=== PATIENT | male | born 1965 | race American Indian/Alaskan Native ===

== ENCOUNTER 2016-05-11 10:49 | Emergency (ER) | payer MEDICARE ==
[2016-05-11 12:28] LABS: Hematocrit 37.6 % (35.5-45.6); Hemoglobin 11.8 gm/dl (11.8-15.2); Mean Corpuscular HGB Conc 31 % (32-34); Mean Corpuscular Hemoglobin 29 pg (28-32); Mean Corpuscular Volume 92 fl (84-94); Platelet Count 169 K/mm3 (140-440); Red Cell Distribution Width 14.5 % (13.2-15.2); White Blood Count 5.1 K/mm3 (4.5-11.0)
[2016-05-11 12:39] LABS: BUN/Creatinine Ratio 1.78; Potassium 3.7 mmol/L (3.6-5.0)
[2016-05-11] MEDS ORDERED: CLEOCIN PO ONE (13:00)
--- NOTE | 2016-05-11 13:41 | XRay Report ---
RIGHT TOES: History: Pain, evaluate for osteomyelitis. Osteopenia is present. Mild to moderate osteoarthritic changes are identified throughout the right foot. There is no evidence for fracture, dislocation or advanced bony destruction. Soft tissue swelling of the great toe and medial ulceration is suspected. IMPRESSION: Osteopenia. Degenerative changes. No convincing findings of osteomyelitis. If further evaluation is needed, MRI right foot with contrast or triple phase bone scan may prove useful.
--- NOTE | 2016-05-11 14:46 | Emergency Department Report ---
- General Chief Complaint: Wound/Laceration Stated Complaint: RT FOOT PAIN Source: patient Mode of arrival: Ambulatory Limitations: No Limitations - History of Present Illness Initial Comments: 51-year-old male past medical history COPD hypertension diabetes ESRD on hemodialysis Tuesday presents with complaint of one week of right great toe pain and mild swelling. Patient denies any fever or chills no nausea or vomiting denies any direct trauma. He states that he had pedicure last week. States that he feels his right great toe is swollen. Patient is able to ambulate without any significant difficulty. Also complaining of chronic burning sensation pain in the right mid foot with his peripheral neuropathy. Patient had hemodialysis morning came from home after hemodialysis. Onset/Timin -: week(s) Extremity Location: Right: Foot (right great toe) Associated Symptoms: pain - Related Data Home Medications Medication Instructions Recorded Confirmed Last Taken Carvedilol [Coreg] 6.25 mg PO BID 04/08/15 07/28/15 1 Day Ago 100mg Docusate Sodium [Colace CAP] 100 mg PO DAILY 04/08/15 07/28/15 1 Day Ago 100 MG Gabapentin [Neurontin] 100 mg PO HS 04/08/15 07/28/15 1 Day Ago 100 MG Amiodarone HCl [Amiodarone 100 MG 200 mg PO BID 06/27/15 06/27/15 1 Day Ago TAB] Benzonatate 100 mg PO Q6HR PRN 06/27/15 07/28/15 1 Day Ago 100 MG Lisinopril 2.5 mg PO DAILY 06/27/15 07/28/15 1 Day Ago 2.5 MG Sucroferric Oxyhydroxide [Velphoro] 500 mg PO AC 06/27/15 07/28/15 1 Day Ago 500 MG guaiFENesin ER [Mucinex ER] 600 mg PO BID 06/27/15 07/28/15 1 Day Ago 600 MG Previous Rx's Medication Instructions Recorded Last Taken Type Famotidine [Pepcid] 20 mg PO DAILY #30 tablet 02/20/14 1 Day Ago Rx 20 MG Apixaban [Eliquis] 2.5 mg PO BID #60 tablet 04/11/15 1 Day Ago Rx 2.5 Levofloxacin [Levaquin TAB] 500 mg PO QDAY #3 tablet 07/30/15 Unknown Rx Acetaminophen [Acetaminophen TAB] 500 mg PO Q8H PRN #25 tablet 05/11/16 Unknown Rx Clindamycin [Clindamycin CAP] 300 mg PO QID #28 cap 05/11/16 Unknown Rx HYDROcodone/APAP 5-325 [[place] 1 each PO Q6HR PRN #8 tablet 05/11/16 Unknown Rx 5/325] Allergies Allergy/AdvReac Type Severity Reaction Status Date / Time grapefruit AdvReac Rash Verified 06/27/15 09:26 chlorox/chlorox bleach Allergy Rash Uncoded 07/27/15 18:59 Tomato/ketchup AdvReac Unknown Uncoded 02/04/14 11:50 ED Review of Systems ROS: Stated complaint: RT FOOT PAIN Other details as noted in HPI Constitutional: denies: chills, fever Eyes: denies: eye pain, eye discharge, vision change ENT: denies: ear pain, throat pain Respiratory: denies: cough, shortness of breath, wheezing Cardiovascular: denies: chest pain, palpitations Endocrine: no symptoms reported Gastrointestinal: denies: abdominal pain, nausea, diarrhea Genitourinary: denies: urgency, dysuria Musculoskeletal: as per HPI. denies: back pain, joint swelling, arthralgia Skin: denies: rash, lesions Neurological: denies: headache, weakness, paresthesias Psychiatric: denies: anxiety, depression Hematological/Lymphatic: denies: easy bleeding, easy bruising ED Past Medical Hx - Past Medical History Hx Hypertension: Yes Hx Heart Attack/AMI: Yes Hx Congestive Heart Failure: Yes Hx Diabetes: Yes Hx Deep Vein Thrombosis: Yes Hx Pulmonary Embolism: Yes (02/08) Hx Renal Disease: Yes ( dialysis) Hx Asthma: Yes Hx COPD: No Hx HIV: No - Surgical History Hx Coronary Stent: Yes Additional Surgical History: hernia, av graft L. arm - Social History Smoking Status: Unknown if ever smoked Substance Use Type: None - Medications Home Medications: Home Medications Medication Instructions Recorded Confirmed Last Taken Type Famotidine [Pepcid] 20 mg PO DAILY #30 tablet 02/20/14 07/28/15 1 Day Ago Rx 20 MG Carvedilol [Coreg] 6.25 mg PO BID 04/08/15 07/28/15 1 Day Ago History 100mg Docusate Sodium [Colace CAP] 100 mg PO DAILY 04/08/15 07/28/15 1 Day Ago History 100 MG Gabapentin [Neurontin] 100 mg PO HS 04/08/15 07/28/15 1 Day Ago History 100 MG Apixaban [Eliquis] 2.5 mg PO BID #60 tablet 04/11/15 07/28/15 1 Day Ago Rx 2.5 Amiodarone HCl [Amiodarone 100 MG 200 mg PO BID 06/27/15 06/27/15 1 Day Ago History TAB] Benzonatate 100 mg PO Q6HR PRN 06/27/15 07/28/15 1 Day Ago History 100 MG Lisinopril 2.5 mg PO DAILY 06/27/15 07/28/15 1 Day Ago History 2.5 MG Sucroferric Oxyhydroxide [Velphoro] 500 mg PO AC 06/27/15 07/28/15 1 Day Ago History 500 MG guaiFENesin ER [Mucinex ER] 600 mg PO BID 06/27/15 07/28/15 1 Day Ago History 600 MG Levofloxacin [Levaquin TAB] 500 mg PO QDAY #3 tablet 07/30/15 Unknown Rx Acetaminophen [Acetaminophen TAB] 500 mg PO Q8H PRN #25 tablet 05/11/16 Unknown Rx Clindamycin [Clindamycin CAP] 300 mg PO QID #28 cap 05/11/16 Unknown Rx HYDROcodone/APAP 5-325 [[place] 1 each PO Q6HR PRN #8 tablet 05/11/16 Unknown Rx 5/325] ED Physical Exam - General Limitations: No Limitations General appearance: alert, in no apparent distress - Head Head exam: Present: atraumatic, normocephalic - Eye Eye exam: Present: normal appearance, PERRL, EOMI - ENT ENT exam: Present: mucous membranes moist - Neck Neck exam: Present: normal inspection - Respiratory Respiratory exam: Present: normal lung sounds bilaterally. Absent: respiratory distress - Cardiovascular Cardiovascular Exam: Present: regular rate, normal rhythm. Absent: systolic murmur, diastolic murmur, rubs, gallop - GI/Abdominal GI/Abdominal exam: Present: soft, normal bowel sounds - Rectal Rectal exam: Present: deferred - Extremities Exam Extremities exam: Present: normal inspection, full ROM - Expanded Lower Extremity Exam Right Foot/Toe exam: Present: full ROM, tenderness, swelling (patient has mild swelling and tenderness right distal toe is slightly erythematous. No palpable fluctuance no visible break in skin or ulceration, no appreciable paronychia minimal tenderness to palpation on the sides of toe), erythema Gait: Positive: observed and normal 1 - Mild redness and swelling - Back Exam Back exam: Present: normal inspection - Neurological Exam Neurological exam: Present: alert, oriented X3 - Psychiatric Psychiatric exam: Present: normal affect, normal mood - Skin Skin exam: Present: warm, dry, intact, normal color. Absent: rash ED Course Vital Signs 05/11/16 11:21 Temperature 97.6 F Pulse Rate 95 H Respiratory 18 Rate Blood Pressure 124/67 O2 Sat by Pulse 96 Oximetry ED Medical Decision Making - Lab Data Result diagrams: 05/11/16 12:15 05/11/16 12:15 - Medical Decision Making A/P: Right great toe cellulitis 1-case discussed with Dr. Franklin 2-ESR CRP within normal limits lactic acid within normal limits WBC within normal limits, x-ray shows no significant bony erosion will treat patient empirically for diabetic cellulitis with clindamycin 3-I called the patient's family member as patient had requested to discuss plan. I advised patient's sister to keep a close eye on his toe and if there is no improvement or worsening of symptoms within the next 72 hours to return to the ED and/or if he develops severe difficulty walking worsened redness that spreads into the foot any pus drainage or any fevers or chills to return to the ED immediately. Patient states that he has follow-up with his primary care doctor in approximately 1 week. Patient's family member understood these instructions. Patient's sister's number is [phone] Critical care attestation.: If time is entered above; I have spent that time in minutes in the direct care of this critically ill patient, excluding procedure time. ED Disposition Clinical Impression: Cellulitis of toe of right foot Disposition: DISCHARGED TO HOME OR SELFCARE Is pt being admited?: No Does the pt Need Aspirin: No Condition: Stable Instructions: Cellulitis (ED), Diabetic Foot Care (ED), Diabetic Foot Ulcers ( ED) Prescriptions: Acetaminophen [Acetaminophen TAB] 500 mg PO Q8H PRN #25 tablet PRN Reason: Pain Clindamycin [Clindamycin CAP] 300 mg PO QID #28 cap HYDROcodone/APAP 5-325 [[place] 5/325] 1 each PO Q6HR PRN #8 tablet PRN Reason: Pain Referrals: PRIMARY CAREMD [Primary Care Provider] - 3-5 Days ALO DAMON MD [Staff Physician] - 3-5 Days [facility] [Outside] - 3-5 Days Time of Disposition: 14:47
[2016-05-11] MEDS ORDERED: TYLENOL PO ONE (14:57)
[2016-05-11 15:34] VITALS: BP 118/75
== END 2016-05-11 15:40 | disposition home or self-care (01) ==
LOC: ED 10:49
DX: L03.031 Cellulitis of right toe (principal); I12.0 Hypertensive chronic kidney disease with stage 5 chronic kidney disease or end stage renal disease; N18.6 End stage renal disease; E11.9 Type 2 diabetes mellitus without complications; I25.2 Old myocardial infarction; I50.9 Heart failure, unspecified; J45.909 Unspecified asthma, uncomplicated; Z99.2 Dependence on renal dialysis; Z86.718 Personal history of other venous thrombosis and embolism; Z86.711 Personal history of pulmonary embolism; Z91.018 Allergy to other foods
CPT/HCPCS: 36415; 80048; 82140; 85027; 85652; 86140; 99284

== ENCOUNTER 2016-06-21 09:07 | Emergency (ER) | payer MEDICARE ==
[2016-06-21] MEDS ORDERED: DECADRON IV ONE (12:45)
--- NOTE | 2016-06-21 12:45 | Emergency Department Report ---
ED Extremity Problem HPI - General Chief complaint: Extremity Injury, Lower Stated complaint: BIG TOE PAIN Time Seen by Provider: 06/21/16 12:18 Source: patient Mode of arrival: Ambulatory Limitations: No Limitations - History of Present Illness Initial comments: Patient complaining of toe pain that is consistent with prior episodes of gout. Patient denies any fever or chills, also denies trauma to her extremity. While examining patient patient also added on complaint of upper respiratory infection, stating he has a cough with productive yellow sputum. MD Complaint: extremity pain, extremity swelling - Related Data Home Medications Medication Instructions Recorded Confirmed Last Taken Carvedilol [Coreg] 6.25 mg PO BID 04/08/15 06/01/16 1 Day Ago 100mg Docusate Sodium [Colace CAP] 100 mg PO BID PRN 04/08/15 06/01/16 1 Day Ago 100 MG Amiodarone HCl [Amiodarone 100 MG 200 mg PO DAILY 06/27/15 06/01/16 1 Day Ago TAB] Lisinopril 2.5 mg PO DAILY 06/27/15 06/01/16 1 Day Ago 2.5 MG Sucroferric Oxyhydroxide [Velphoro] 500 mg PO TID 06/27/15 06/01/16 1 Day Ago 500 MG Famotidine [Pepcid] 20 mg PO BID 06/01/16 06/01/16 Unknown Vit B Cplx #11/FA/C/Biot/Zn Ox 1 tab PO DAILY 06/01/16 06/01/16 Unknown [Dialyvite with Zinc Tablet] Previous Rx's Medication Instructions Recorded Last Taken Type Apixaban [Eliquis] 2.5 mg PO BID #60 tablet 04/11/15 1 Day Ago Rx 2.5 Levofloxacin [Levaquin] 250 mg PO QDAY #5 tablet 06/02/16 Unknown Rx traMADol [Ultram 50 MG tab] 50 mg PO Q4HR PRN #10 tablet 06/21/16 Unknown Rx Allergies Allergy/AdvReac Type Severity Reaction Status Date / Time grapefruit AdvReac Rash Verified 05/31/16 09:32 chlorox/chlorox bleach Allergy Rash Uncoded 05/31/16 09:32 Tomato/ketchup AdvReac Unknown Uncoded 05/31/16 09:32 ED Review of Systems ROS: Stated complaint: BIG TOE PAIN Other details as noted in HPI Constitutional: denies: chills, diaphoresis, fever, malaise Eyes: as per HPI ENT: denies: ear pain, throat pain Respiratory: cough, wheezing Cardiovascular: denies: chest pain, palpitations Gastrointestinal: denies: abdominal pain, nausea, vomiting, diarrhea Musculoskeletal: joint swelling, arthralgia. denies: back pain Skin: denies: rash Neurological: denies: headache, weakness, numbness, paresthesias ED Past Medical Hx - Past Medical History Previous Medical History?: Yes Hx Hypertension: Yes Hx Heart Attack/AMI: Yes Hx Congestive Heart Failure: Yes Hx Diabetes: Yes Hx Deep Vein Thrombosis: Yes Hx Pulmonary Embolism: Yes (02/08) Hx Renal Disease: Yes ([facility] dialysis) Hx Asthma: Yes Hx COPD: Yes (2-3 L home O2) Hx HIV: No Additional medical history: Hard of Hearing - Surgical History Past Surgical History?: Yes Hx Coronary Stent: Yes Additional Surgical History: hernia, av graft L. arm - Social History Smoking Status: Former Smoker Substance Use Type: Prescribed, Other - Medications Home Medications: Home Medications Medication Instructions Recorded Confirmed Last Taken Type Carvedilol [Coreg] 6.25 mg PO BID 04/08/15 06/01/16 1 Day Ago History 100mg Docusate Sodium [Colace CAP] 100 mg PO BID PRN 04/08/15 06/01/16 1 Day Ago History 100 MG Apixaban [Eliquis] 2.5 mg PO BID #60 tablet 04/11/15 06/01/16 1 Day Ago Rx 2.5 Amiodarone HCl [Amiodarone 100 MG 200 mg PO DAILY 06/27/15 06/01/16 1 Day Ago History TAB] Lisinopril 2.5 mg PO DAILY 06/27/15 06/01/16 1 Day Ago History 2.5 MG Sucroferric Oxyhydroxide [Velphoro] 500 mg PO TID 06/27/15 06/01/16 1 Day Ago History 500 MG Famotidine [Pepcid] 20 mg PO BID 06/01/16 06/01/16 Unknown History Vit B Cplx #11/FA/C/Biot/Zn Ox 1 tab PO DAILY 06/01/16 06/01/16 Unknown History [Dialyvite with Zinc Tablet] Levofloxacin [Levaquin] 250 mg PO QDAY #5 tablet 06/02/16 Unknown Rx traMADol [Ultram 50 MG tab] 50 mg PO Q4HR PRN #10 tablet 06/21/16 Unknown Rx ED Physical Exam - General Limitations: No Limitations General appearance: alert, in no apparent distress - Head Head exam: Present: atraumatic, normocephalic - Eye Eye exam: Present: normal appearance - ENT ENT exam: Present: mucous membranes moist - Neck Neck exam: Present: normal inspection - Respiratory Respiratory exam: Present: wheezes, rhonchi. Absent: normal lung sounds bilaterally, respiratory distress - Cardiovascular Cardiovascular Exam: Present: tachycardia - GI/Abdominal GI/Abdominal exam: Absent: soft, distended, tenderness, guarding - Extremities Exam Extremities exam: Present: tenderness, joint swelling - Expanded Lower Extremity Exam Left Lower Leg exam: Present: normal inspection, full ROM. Absent: swelling Ankle exam: Present: normal inspection, full ROM. Absent: tenderness, swelling , ecchymosis, deformity, erythema Foot/Toe exam: Present: tenderness, swelling Neuro vascular tendon exam: Present: no vascular compromise (left podagra). Absent: pulse deficit, abnormal cap refill - Back Exam Back exam: Present: normal inspection - Neurological Exam Neurological exam: Present: alert ED Course Vital Signs 06/21/16 09:34 Temperature 97.8 F Pulse Rate 105 H Respiratory 22 Rate Blood Pressure 131/72 O2 Sat by Pulse 100 Oximetry ED Medical Decision Making - Lab Data Result diagrams: 06/21/16 13:45 06/21/16 13:45 - Medical Decision Making I discussed the patient's history with patient's sister whom he lives with on the phone. Due to patient's mental disabilities he is a very poor historian and all information had to be gained from relative that he lives with. IV fluids were initially started on this patient to deliver IV meds and IV fluids patient did not inform staff that he was a dialysis patient fluid stopped immediately once this was found out a Kahn got an approximately 200 mL of normal saline over about a 1 hourperiod There were 22-gauge peripheral IV. I discussed findings with , we both feel patient is fine for discharge. Critical care attestation.: If time is entered above; I have spent that time in minutes in the direct care of this critically ill patient, excluding procedure time. ED Disposition Clinical Impression: Gout Disposition: DISCHARGED TO HOME OR SELFCARE Is pt being admited?: No Condition: Stable Prescriptions: traMADol [Ultram 50 MG tab] 50 mg PO Q4HR PRN #10 tablet PRN Reason: Pain Referrals: PRIMARY CARE,MD [Primary Care Provider] - 3-5 Days
--- NOTE | 2016-06-21 13:25 | XRay Report ---
PA and lateral chest: The heart is being. The aortic arch is slightly tortuous and calcified. There is mild vascular congestion. The possibility of mild pulmonary interstitial disease cannot be excluded. There are no pulmonary infiltrates or nodules. The findings appear essentially unchanged compared May 31, 2016. Impression: Mild chronic congestion. Questionable chronic lung disease. No acute findings noted.
[2016-06-21] MEDS: NACL 0.9% 1000 ML 1,000 ML IV ONE ×2 (14:10→14:16)
[2016-06-21 14:11] LABS: Basophils % (Auto) 2.1 % (0.0-1.8); Eosinophils % (Auto) 14.4 % (0.0-4.3); Hematocrit 34.3 % (35.5-45.6); Mean Corpuscular HGB Conc 32 % (32-34); Mean Corpuscular Hemoglobin 29 pg (28-32); Mean Corpuscular Volume 89 fl (84-94); Platelet Count 148 K/mm3 (140-440); Red Blood Count 3.85 M/mm3 (3.65-5.03); White Blood Count 6.3 K/mm3 (4.5-11.0)
[2016-06-21 14:32] LABS: Albumin 3.2 g/dL (3.9-5); Albumin/Globulin Ratio 0.9 %; BUN/Creatinine Ratio 3.13; Bilirubin,Total 0.3 mg/dL (0.1-1.2); Chloride 98.8 mmol/L (98-107); Potassium 4.4 mmol/L (3.6-5.0); Total Protein 6.7 g/dL (6.3-8.2)
[2016-06-21 15:28] VITALS: BP 122/70
== END 2016-06-21 15:26 | disposition home or self-care (01) ==
LOC: ED 09:07
DX: M10.9 Gout, unspecified (principal); I10 Essential (primary) hypertension; I25.2 Old myocardial infarction; I50.9 Heart failure, unspecified; E11.9 Type 2 diabetes mellitus without complications; J44.9 Chronic obstructive pulmonary disease, unspecified; J45.909 Unspecified asthma, uncomplicated; Z86.711 Personal history of pulmonary embolism; Z86.718 Personal history of other venous thrombosis and embolism; Z87.891 Personal history of nicotine dependence; Z91.018 Allergy to other foods
CPT/HCPCS: 36415; 71020; 80053; 85025; 96374; 99284; J1100; J7030

== ENCOUNTER 2016-07-16 08:23 | Emergency (ER) | payer MEDICARE ==
[2016-07-16 10:41] LABS: Basophils % (Auto) 0.4 % (0.0-1.8); Eosinophils % (Auto) 8.7 % (0.0-4.3); Hematocrit 38.1 % (35.5-45.6); Hemoglobin 12.6 gm/dl (11.8-15.2); Mean Corpuscular HGB Conc 33 % (32-34); Mean Corpuscular Hemoglobin 30 pg (28-32); Mean Corpuscular Volume 89 fl (84-94); Platelet Count 168 K/mm3 (140-440); Red Blood Count 4.27 M/mm3 (3.65-5.03); Red Cell Distribution Width 15.3 % (13.2-15.2); White Blood Count 6.2 K/mm3 (4.5-11.0)
--- NOTE | 2016-07-16 10:59 | XRay Report ---
Left foot 3 views: History: Left foot pain. Findings: Generalized demineralization. Hallux valgus with degenerative changes of the first tarsometatarsal and metatarsophalangeal and interphalangeal joint. Arthritic changes at the interphalangeal and second third fourth and fifth toes. Arthritic changes of the talonavicular and naviculocuneiform joints predominantly dorsally. No periosteal reaction. Calcification of plantar vessels. Large dorsal spur posterior calcaneum. Impression: Findings as detailed above.
[2016-07-16 11:01] LABS: Anion Gap 23 mmol/L; BUN/Creatinine Ratio 2.77; Blood Urea Nitrogen 25 mg/dL (9-20); Calcium 9.8 mg/dL (8.4-10.2); Carbon Dioxide 23 mmol/L (22-30); Chloride 95.8 mmol/L (98-107); Glucose 114 mg/dL (75-100); Sodium 136 mmol/L (137-145); Uric Acid 3.9 mg/dL (3.5-7.6)
--- NOTE | 2016-07-16 11:22 | Emergency Department Report ---
HPI - General Chief Complaint: Skin/Abscess/Foreign Body Time Seen by Provider: 07/16/16 09:46 - HPI HPI: This is a 51-year-old Afro-[place]ub[place] male who presents to the emergency department from home with complaint of right foot pain and right great toe pain. He denies any skin color change, trauma to the area or any swelling. The patient also complains of some swelling to the right side of the groin that comes and goes intermittently over the past year. When it is swollen and protruding, sometimes it will make him have some difficulty with urination. He denies any pain to the penis or testicles. The patient says he has a primary care doctor but is unsure of their name and is unsure of the last time he saw that individual. ED Past Medical Hx - Past Medical History Previous Medical History?: Yes Hx Hypertension: Yes Hx Heart Attack/AMI: Yes Hx Congestive Heart Failure: Yes Hx Diabetes: Yes Hx Deep Vein Thrombosis: Yes Hx Pulmonary Embolism: Yes (02/08) Hx Renal Disease: Yes ([facility] dialysis) Hx Asthma: Yes Hx COPD: Yes (2-3 L home O2) Hx HIV: No Additional medical history: Hard of Hearing - Surgical History Past Surgical History?: Yes Hx Coronary Stent: Yes Additional Surgical History: hernia, av graft L. arm - Social History Smoking Status: Never Smoker Substance Use Type: None - Medications Home Medications: Home Medications Medication Instructions Recorded Confirmed Last Taken Type Carvedilol [Coreg] 6.25 mg PO BID 04/08/15 06/01/16 1 Day Ago History 100mg Docusate Sodium [Colace CAP] 100 mg PO BID PRN 04/08/15 06/01/16 1 Day Ago History 100 MG Apixaban [Eliquis] 2.5 mg PO BID #60 tablet 04/11/15 06/01/16 1 Day Ago Rx 2.5 Amiodarone HCl [Amiodarone 100 MG 200 mg PO DAILY 06/27/15 06/01/16 1 Day Ago History TAB] Lisinopril 2.5 mg PO DAILY 06/27/15 06/01/16 1 Day Ago History 2.5 MG Sucroferric Oxyhydroxide [Velphoro] 500 mg PO TID 06/27/15 06/01/16 1 Day Ago History 500 MG Famotidine [Pepcid] 20 mg PO BID 06/01/16 06/01/16 Unknown History Vit B Cplx #11/FA/C/Biot/Zn Ox 1 tab PO DAILY 06/01/16 06/01/16 Unknown History [Dialyvite with Zinc Tablet] Levofloxacin [Levaquin] 250 mg PO QDAY #5 tablet 06/02/16 Unknown Rx traMADol [Ultram 50 MG tab] 50 mg PO Q4HR PRN #10 tablet 06/21/16 Unknown Rx ED Review of Systems ROS: Stated complaint: RT FOOT PAIN Other details as noted in HPI Comment: All other systems reviewed and negative Constitutional: denies: chills, fever Eyes: denies: eye pain, eye discharge, vision change ENT: denies: ear pain, throat pain Respiratory: denies: cough, shortness of breath, wheezing Cardiovascular: denies: chest pain, palpitations Gastrointestinal: denies: abdominal pain, nausea Genitourinary: denies: dysuria, discharge Musculoskeletal: arthralgia. denies: joint swelling Skin: denies: change in color, pruritus Neurological: denies: headache, weakness, paresthesias Physical Exam - Physical Exam Vital Signs: Vital Signs 07/16/16 08:27 Temperature 97.8 F Pulse Rate 66 Respiratory 20 Rate Blood Pressure 114/65 O2 Sat by Pulse 99 Oximetry Physical Exam: GENERAL: The patient is well-developed well-nourished. HEENT: Normocephalic. Atraumatic. Extraocular motions are intact. Patient has moist mucous membranes. Pupils equal reactive to light bilaterally. NECK: Supple. Trachea is midline. CHEST/LUNGS: Clear to auscultation. There is no respiratory distress noted. HEART/CARDIOVASCULAR: Regular. There is no tachycardia. There is no gallop rub or murmur. ABDOMEN: Abdomen is soft, nontender. Patient has normal bowel sounds. There is no abdominal distention. : No tenderness palpation to the penis or scrotum. There is a reducible right -sided direct inguinal hernia. SKIN: Skin is warm and dry. Patient has onychomycosis of all of his toenails. NEURO: The patient is awake, alert, and oriented. The patient is cooperative. The patient has no focal neurologic deficits. The patient has normal speech and gait. MUSCULOSKELETAL: Unable to reproduce the patient's tenderness to palpation to the right foot or great toe but no obvious deformity. There is no limitation range of motion. There is no evidence of acute injury. ED Course Vital Signs 07/16/16 08:27 Temperature 97.8 F Pulse Rate 66 Respiratory 20 Rate Blood Pressure 114/65 O2 Sat by Pulse 99 Oximetry ED Medical Decision Making - Lab Data Result diagrams: 07/16/16 10:20 07/16/16 13:16 - Radiology Data Radiology results: image reviewed interpreted by me: She of the bilateral feet does not show any fracture, dislocation or any acute process. There are some osteoarthritic and degenerative changes. - Medical Decision Making 51-year-old male presents to the emergency department with complaint of pain to the right foot and great toe. No obvious deformity. He has some onychomycosis and visible fungus. X-rays of both feet were done that does not show any fracture, dislocation or any acute process but does show some degenerative changes. Labs are grossly unremarkable other than the renal insufficiency and mild hyperkalemia. Patient does have end-stage renal disease on dialysis. He was given a small amount of Kayexalate but does not require emergent dialysis. Patient was found to have a reducible right direct inguinal hernia. He'll be given a referral for a general surgeon in case he would like to pursue outpatient surgery to correct this. - Differential Diagnosis peripheral neuropathy, osteoarthritis, inguinal hernia Critical Care Time: No Critical care attestation.: If time is entered above; I have spent that time in minutes in the direct care of this critically ill patient, excluding procedure time. ED Disposition Clinical Impression: Foot pain, right, Pain of right great toe, Hyperkalemia, ESRD (end stage renal disease) Inguinal hernia Qualifiers: Obstruction and gangrene presence: with obstruction but without gangrene Laterality: unilateral Recurrence: not specified as recurrent Qualified Code(s) : K40.30 - Unilateral inguinal hernia, with obstruction, without gangrene, not specified as recurrent Disposition: DISCHARGED TO HOME OR SELFCARE Is pt being admited?: No Condition: Stable Instructions: Chronic Kidney Disease (ED), Arthralgia (ED), Inguinal Hernia (ED ) Additional Instructions: Please follow-up with your primary care doctor in the next few days. Continue with your normal dialysis regimen. I have given you a referral for a local [employer], Eric, to follow up regarding your right foot pain. I've given you a referral for a local surgeon, Dr. Wang, to follow up regarding outpatient surgical correction of your inguinal hernia. Return to the emergency department with any worsening of your symptoms or any acute distress. Referrals: PRIMARY CARE, [Primary Care Provider] - 3-5 Days MARIANNA KIMBALL MD [Staff Physician] - 3-5 Days HANNAH WANG MD [Staff Physician] - 3-5 Days Time of Disposition: 15:54
[2016-07-16 11:30] LABS: Potassium TNR mmol/L (3.6-5.0)
[2016-07-16 14:17] LABS: BUN/Creatinine Ratio 2.92; Calcium 9.7 mg/dL (8.4-10.2); Chloride 96.9 mmol/L (98-107); Potassium 5.1 mmol/L (3.6-5.0)
[2016-07-16] MEDS ORDERED: KIONEX PO ONE (14:24)
[2016-07-16] MEDS ORDERED: TYLENOL PO ONE (14:24)
[2016-07-16 14:41] VITALS: BP 118/68
--- NOTE | 2016-07-16 16:06 | XRay Report ---
Right foot 3 views: History: Flank pain. Findings: Severe osteopenia. Hallux valgus with arthritic changes in the first tarsometatarsal joint and the metatarsophalangeal and interphalangeal joint. Arthritic changes in the interphalangeal joints of second third fourth and fifth toes. No periosteal reaction or lytic lesion. Plantar and dorsal spur posterior calcaneum. Faint calcification of plantar vessels. Impression: Findings as detailed above. No evidence of acute fracture.
== END 2016-07-16 16:17 | disposition home or self-care (01) ==
LOC: ED 08:23
DX: K40.30 Unilateral inguinal hernia, with obstruction, without gangrene, not specified as recurrent (principal); I12.0 Hypertensive chronic kidney disease with stage 5 chronic kidney disease or end stage renal disease; N18.6 End stage renal disease; M79.671 Pain in right foot; M79.674 Pain in right toe(s); I25.2 Old myocardial infarction; I50.9 Heart failure, unspecified; E11.9 Type 2 diabetes mellitus without complications; J44.9 Chronic obstructive pulmonary disease, unspecified; J45.909 Unspecified asthma, uncomplicated; Z99.2 Dependence on renal dialysis; Z86.718 Personal history of other venous thrombosis and embolism; Z86.711 Personal history of pulmonary embolism
CPT/HCPCS: 36415; 80048; 84550; 85025; 99283